=== PATIENT | female | born 1985 | race Two or more races ===

== ENCOUNTER 2022-02-15 16:38 | Inpatient (IN) | payer MEDICAID ==
[~2022-02-15] VITALS: Ht 165.1 cm; Wt 65.7 kg
[2022-02-15] MEDS ORDERED: MORPHINE SULFATE 4 MG/ML SYR/VIAL IV ONE (17:45)
[2022-02-15] MEDS ORDERED: ONDANSETRON HCL 4 MG/2 ML VIAL IV ONE (17:45)
[2022-02-15 18:00] LABS: Basophils # (auto) 0.1 10 ^3/uL (0-0.2); Basophils % (auto) 0.9 % (0.0-2.0); Eosinophils # (auto) 0.1 10 ^3/uL (0-0.8); Eosinophils % (auto) 1.1 % (0.0-7.0); Hematocrit 32.5 % (36.0-46.0); Lymphocytes # (auto) 1.7 10 ^3/uL (0.4-5.4); Lymphocytes % (auto) 19.3 % (10.0-50.0); Mean Corpuscular Hemoglobin 21.4 pg (28.0-32.0); Mean Corpuscular Hgb Conc. 30.8 g/dL (32.0-36.0); Mean Corpuscular Volume 69.4 fL (80.0-100.0); Monocytes # (auto) 0.6 10 ^3/uL (0-1.3); Monocytes % (auto) 6.8 % (0.0-12.0); Neutrophils # (auto) 6.3 10 ^3/uL (1.6-8.6); Neutrophils % (auto) 71.9 % (37.0-80.0); Red Blood Cells 4.69 10^6/uL (4.0-5.20); Red Cell Distribution Width 16.5 % (11.8-14.3); White Blood Cell 8.8 10^3/uL (4.4-10.8)
[2022-02-15] MEDS ORDERED: diphenhdrAMINE HCL 50 MG/1 ML VL ONE (18:14)
[2022-02-15] MEDS ORDERED: diphenhdrAMINE HCL 50 MG/1 ML VL IV ONE (18:15)
[2022-02-15 18:21] LABS: Albumin 2.9 g/dL (3.4-5.0); Calcium 8.4 mg/dL (8.5-10.1); Potassium 3.9 mmol/L (3.5-5.1)
[2022-02-15 18:24] LABS: BUN/Creatinine Ratio 19.7
[2022-02-15 18:29] LABS: Bilirubin, Total 0.1 mg/dL (0.2-1.0); Total Protein 6.8 g/dL (6.4-8.2)
[2022-02-15] MEDS ORDERED: IOHEXOL 350 MG/ML 100ML IJ ONE (18:49)
[2022-02-15 22:46] LABS: Urine Bacteria FEW /hpf (None Seen); Urine Blood Negative /uL (Negative); Urine Mucus FEW (None Seen); Urine WBC 86 /hpf (0 - 5)
[2022-02-15 22:48] LABS: Urine Specific Gravity > 1.050 (1.001-1.035)
[2022-02-16] MEDS ORDERED: MORPHINE SULFATE INJECTION 2 MG/ML SYRG IV PRN (00:15)
[2022-02-16] MEDS ORDERED: ONDANSETRON HCL 4 MG/2 ML VIAL IV PRN (00:15)
[2022-02-16] MEDS ORDERED: MORPHINE SULFATE 4 MG/ML SYR/VIAL IV PRN (00:15)
[2022-02-16] MEDS ORDERED: NITROGLYCERIN 0.4 MG SL TAB SL PRN (00:15)
[2022-02-16] MEDS: SODIUM CHLORIDE 0.9% 1,000 ML IV SCH ×3 (00:51→18:27)
[2022-02-16 02:30] VITALS: BP 111/73
[2022-02-16 04:44] VITALS: BP 111/72
[2022-02-16 06:51] LABS: Basophils # (auto) 0 10 ^3/uL (0-0.2); Basophils % (auto) 0.7 % (0.0-2.0); Eosinophils # (auto) 0 10 ^3/uL (0-0.8); Hemoglobin 8.7 g/dL (12.2-16.2); Monocytes # (auto) 0.5 10 ^3/uL (0-1.3); Neutrophils # (auto) 4.3 10 ^3/uL (1.6-8.6); Red Cell Distribution Width 18.9 % (11.8-14.3)
[2022-02-16 06:53] LABS: Eosinophils % (auto) 0.7 % (0.0-7.0); Hematocrit 26.3 % (36.0-46.0); Lymphocytes # (auto) 0.9 10 ^3/uL (0.4-5.4); Lymphocytes % (auto) 15.8 % (10.0-50.0); Mean Corpuscular Hemoglobin 23.8 pg (28.0-32.0); Mean Corpuscular Volume 72.1 fL (80.0-100.0); Neutrophils % (auto) 73.8 % (37.0-80.0); Red Blood Cells 3.65 10^6/uL (4.0-5.20); White Blood Cell 5.9 10^3/uL (4.4-10.8)
[2022-02-16 07:16] LABS: BUN/Creatinine Ratio 25.4; Potassium 3.9 mmol/L (3.5-5.1)
[2022-02-16 09:00] VITALS: BP 101/69
[2022-02-16] MEDS ORDERED: ENOXAPARIN SOD 40 MG/0.4 ML SYRINGE SC SCH (10:00)
[2022-02-16] MEDS ORDERED: ACETAMINOPHEN 325 MG TAB PO PRN (10:30)
[2022-02-16 13:00] VITALS: BP 125/82
[2022-02-16 17:00] VITALS: BP 106/67
[2022-02-16 19:23] VITALS: BP 106/67
== END 2022-02-16 20:40 | disposition home or self-care (01) | DRG 203 ==
LOC: EDSEX 16:38 → EDUNIT# 16:38 → EDBD 16:38 → ER 16:38 → TELE 02-16 00:04 → TELE-CENTR 02-16 01:14
PROVIDERS: ADMIT Hospitalist; ATTEND Internal Medicine
DX: R07.9 Chest pain, unspecified (principal); E66.9 Obesity, unspecified; M79.89 Other specified soft tissue disorders; F41.9 Anxiety disorder, unspecified; R00.0 Tachycardia, unspecified; R06.03 Acute respiratory distress; R55 Syncope and collapse; Z20.822 Contact with and (suspected) exposure to COVID-19; Z68.24 Body mass index [BMI] 24.0-24.9, adult; Z90.49 Acquired absence of other specified parts of digestive tract; Z82.49 Family history of ischemic heart disease and other diseases of the circulatory system; Z83.3 Family history of diabetes mellitus; Z98.82 Breast implant status; Z83.2 Family history of diseases of the blood and blood-forming organs and certain disorders involving the immune mechanism
CPT/HCPCS: 36415; 70450; 71045; 71275; 80048; 80053; 81001; 83605; 83880; 84484; 84702; 85025; 85379; 85652; 86141; 93005; 93306; 93971; 96374; 96375; 99291; G0378; J2405